=== PATIENT | male | born 1980 ===

== ENCOUNTER 2023-12-24 06:25 | Day surgery (SDC) | payer BC, SELFPAY ==
[2023-12-24] VITALS (12 sets, daily range): BP systolic 128–166; BP diastolic 89–103; BMI 24.4
[2023-12-24] MEDS: TYLENOL 1000 MG PO (07:30)
[2023-12-24] MEDS: CELEBREX 200 MG PO (07:30)
[2023-12-24] MEDS: DEMEROL 12.5 MG IV (09:05)
[2023-12-24] MEDS: DILAUDID 0.5 MG IV (09:19)
== END 2023-12-24 11:30 | disposition home or self-care (01) ==
LOC: SDS 06:25
PROVIDERS: ATTENDING PHYSICIAN Orthopaedic Surgery
DX: S83.242A Other tear of medial meniscus, current injury, left knee, initial encounter (principal); X58.XXXA Exposure to other specified factors, initial encounter; M25.862 Other specified joint disorders, left knee
CPT/HCPCS: 29881